=== PATIENT | male | born 1995 | race Caucasian/White ===

== ENCOUNTER 2020-02-16 11:47 | Emergency (ER) | payer SELFPAY ==
[~2020-02-16] VITALS: Ht 182 cm; Wt 79.2 kg
[2020-02-16] MEDS ORDERED: morphine INJ 10 MG/ML 1ML (SYR OR VIAL) ONE (11:50)
[2020-02-16] MEDS ORDERED: morphine INJ 10 MG/ML 1ML (SYR OR VIAL) IVP STA (11:55)
--- NOTE | 2020-02-16 12:00 | ED Trauma-Multisystem ---
General Stated Complaint: FALL- L SIDE RIB PAIN Activation Level: Level 2 Source of Information: Patient Exam Limitations: No Limitations History of Present Illness Date Seen by Provider: Feb 16, 2020 Time Seen by Provider: 11:58 Initial Comments This patient fell down a flight of stairs this morning about 3 to 4 hours prior to presentation here. He has difficulty breathing secondary to left lateral chest pain and left upper abdominal pain. Did not hit his head. Occurred: This Morning Severity: Moderate Method of Injury: Fall Modifying Factors: No Movement Associated Symptoms (Fall): Denies Symptoms Allergies and Home Medications Allergies Coded Allergies: No Known Drug Allergies (Unverified , 02/16/20) Home Medications Docusate Sodium 100 Mg Capsule, 100 MG PO BID Prescribed by: MANISH PERERA on 02/16/20 1234 Oxycodone HCl/Acetaminophen 1 Each Tablet, 1 TAB PO Q4H Prescribed by: MANISH PERERA on 02/16/20 1234 Patient Home Medication List Home Medication List Reviewed: Yes Review of Systems Review of Systems Constitutional: see HPI Eyes: No Symptoms Reported Ears: No Symptoms Reported Nose: No Symptoms Reported Mouth: No Symptoms Reported Throat: No Symptoms to Report Respiratory: see HPI, short of breath Cardiovascular: No Symptoms Reported Genitourinary: no symptoms reported Musculoskeletal: no symptoms reported Past Phcnxqh-Krqhjg-Faydrj Hx Patient Social History Recent Foreign Travel: No Contact w/Someone Who Travel: No Physical Exam Vital Signs Vital Signs - First Documented 02/16/20 11:50 Pulse 85 Resp 36 B/P (MAP) 127/106 (113) Pulse Ox 100 Height, Weight, BMI Height: '" Weight: lbs. oz. kg; BMI Method: General Appearance: Anxious, Moderate Distress (Tachypnea, difficulty taking a deep breath because of pain. Left upper abdomen is tender to palpation.) Head: No Evidence of Injury; No Active Bleeding Eyes: Bilateral Eye Normal Inspection, Bilateral Eye PERRL, Bilateral Eye EOMI Neck: Full Range of Motion, Normal Inspection Respiratory: No Accessory Muscle Use, No Respiratory Distress Gastrointestinal: Normal Bowel Sounds, Soft, Tenderness (Left upper quadrant) Neurologic/Psychiatric: Alert, Oriented x3 Skin: Normal Color, Warm/Dry Beatriz Coma Score Best Eye Response ([place]): (4) Open Spontaneously Best Verbal Response ([place]): (5) Oriented Best Motor Response ([place]): (6) Obeys Commands Beatriz Total: 15 Progress/Results/Core Measures Results/Orders Lab Results Laboratory Tests Test 02/16/20 11:53 Range/Units White Blood Count 12.0 H 4.3-11.0 10^3/uL Red Blood Count 4.54 4.30-5.52 10^6/uL Hemoglobin 14.4 13.3-17.7 g/dL Hematocrit 42 40-54 % Mean Corpuscular Volume 92 80-99 fL Mean Corpuscular Hemoglobin 32 25-34 pg Mean Corpuscular Hemoglobin Concent 34 32-36 g/dL Red Cell Distribution Width 12.9 10.0-14.5 % Platelet Count 248 130-400 10^3/uL Mean Platelet Volume 10.2 9.0-12.2 fL Sodium Level 140 135-145 MMOL/L Potassium Level 4.5 3.6-5.0 MMOL/L Chloride Level 105 98-107 MMOL/L Carbon Dioxide Level 22 21-32 MMOL/L Anion Gap 13 5-14 MMOL/L Blood Urea Nitrogen 14 7-18 MG/DL Creatinine 1.00 0.60-1.30 MG/DL Estimat Glomerular Filtration Rate > 60 BUN/Creatinine Ratio 14 Glucose Level 92 70-105 MG/DL Calcium Level 9.4 8.5-10.1 MG/DL Total Bilirubin 0.3 0.1-1.0 MG/DL Direct Bilirubin 0.2 0.0-0.3 MG/DL Indirect Bilirubin 0.1 MG/DL Aspartate Amino Transf (AST/SGOT) 23 5-34 U/L Alanine Aminotransferase (ALT/SGPT) 16 0-55 U/L Alkaline Phosphatase 68 40-136 U/L Total Protein 8.0 6.4-8.2 GM/DL Albumin 5.0 H 3.2-4.5 GM/DL Serum Alcohol 96 H <10 MG/DL My Orders Orders - MANISH PERERA APRN Cbc No Diff (02/16/20 11:55) Basic Metabolic Panel (02/16/20 11:55) Liver Panel (02/16/20 11:55) Alcohol (02/16/20 11:55) Ua Culture If Indicated (02/16/20 11:55) Type And Screen (02/16/20 11:55) Chest 1 View, Ap/Pa Only (02/16/20 11:55) End Tidal Co2 (02/16/20 11:55) Monitor-Rhythm Ecg Trace Only (02/16/20 11:55) Ed Iv/Invasive Line Start (02/16/20 11:55) Morphine Injection (Morphine Injection (02/16/20 11:55) Ct Head/Cervical Spine Wo (02/16/20 11:55) Ct Chest/Abdomen/Pelvis W (02/16/20 11:55) Drug Screen Stat (Urine) (02/16/20 12:04) Ketorolac Injection (Toradol Injection) (02/16/20 12:30) Oxycodone/Apap 5/325mg Tablet (Percocet (02/16/20 12:30) Ns Iv 1000 Ml (Sodium Chloride 0.9%) (02/16/20 13:00) Medications Given in ED Current Medications Medications Dose Ordered Sig/Brady Route Start Time Stop Time Status Last Admin Dose Admin Iohexol 100 ml ONCE ONCE IV 02/16/20 12:15 02/16/20 12:32 DC 02/16/20 12:18 100 ML Ketorolac Tromethamine 15 mg ONCE ONCE IVP 02/16/20 12:30 02/16/20 12:31 DC 02/16/20 12:53 15 MG Oxycodone/ Acetaminophen 1 tab ONCE ONCE PO 02/16/20 12:30 02/16/20 12:31 DC 02/16/20 12:54 1 TAB Sodium Chloride 100 ml ONCE ONCE IV 02/16/20 12:15 02/16/20 12:32 DC 02/16/20 12:18 80 ML Vital Signs/I&O 02/16/20 11:50 Pulse 85 Resp 36 B/P (MAP) 127/106 (113) Pulse Ox 100 Departure Impression Primary Impression: Rib fracture Qualified Codes: S22.32XA - Fracture of one rib, left side, initial encounter for closed fracture Disposition: 01 HOME, SELF-CARE Condition: Stable Departure-Patient Inst. Decision time for Depature: 12:32 Referrals: NO,LOCAL PHYSICIAN (PCP/Family) Primary Care Physician Patient Instructions: Rib Fracture (DC) Add. Discharge Instructions: 1. Return to ER for any concerns 2. Take pain medication as directed. Follow-up with your doctor this week for recheck. Return to ER for any fevers chills or worsening shortness of breath. Use the incentive spirometer (the device that helps you see how deep of breath you are taking) so that you do not develop a pneumonia. The pain medication can be very constipating so it would be a good idea to take the stool softener prescribed and increase your water intake. Do not mix this medication with alcohol. Emergency department focuses on treating and ruling out life- threatening diseases. Whenever possible, a diagnosis is given. However, most patients are given an impression based on their history, physical exam, and workup during your brief time in the ER. Information about probable diagnosis and other educational material has been provided. Please take the time to read and understand this information. It is very important that you follow up with a physician as discussed during the visit today. Failure to adhere to your follow-up instructions may lead to severe disability, injury, or so please make sure to keep your appointments or obtain one as requested. Scripts Docusate Sodium (Colace) 100 Mg Capsule 100 MG PO BID, #60 CAP Prov: MANISH PERERA APRN 02/16/20 Oxycodone HCl/Acetaminophen (Percocet 5-325 mg Tablet) 1 Each Tablet 1 TAB PO Q4H for PAIN-MODERATE MDD 6 TABS for 7 Days, #30 TAB Prov: MANISH PERERA APRN 02/16/20 MANISH PERERA APRN Feb 16, 2020 12:00
[2020-02-16 12:02] LABS: HEMOGLOBIN 14.4 g/dL (13.3-17.7); MEAN PLATELET VOLUME 10.2 fL (9.0-12.2)
[2020-02-16] MEDS ORDERED: NS 100 ML (IVPB) BAG IV ONE (12:15)
[2020-02-16] MEDS ORDERED: HOLD METFORMIN - RECEIVED CONTRAST 20 ML VIAL IV SCH (12:15)
[2020-02-16] MEDS ORDERED: IOHEXOL 350 MG/ML 100 ML (OMNIPAQUE 350) VIAL IV ONE (12:15)
[2020-02-16 12:19] LABS: CHLORIDE 105 MMOL/L (98-107); POTASSIUM 4.5 MMOL/L (3.6-5.0); SODIUM 140 MMOL/L (135-145)
[2020-02-16 12:20] LABS: CALCIUM 9.4 MG/DL (8.5-10.1)
[2020-02-16 12:22] LABS: GLUCOSE 92 MG/DL (70-105)
[2020-02-16 12:23] LABS: BILIRUBIN,TOTAL 0.3 MG/DL (0.1-1.0); CARBON DIOXIDE 22 MMOL/L (21-32)
[2020-02-16 12:25] LABS: ALKALINE PHOSPHATASE 68 U/L (40-136); GFR ESTIMATED > 60
[2020-02-16 12:26] LABS: BUN/CREATININE RATIO 14
[2020-02-16 12:27] LABS: BILIRUBIN,DIRECT 0.2 MG/DL (0.0-0.3); BILIRUBIN,INDIRECT 0.1 MG/DL
[2020-02-16 12:28] LABS: ALANINE AMINOTRANSFERASE 16 U/L (0-55)
[2020-02-16] MEDS ORDERED: oxyCODONE/APAP 5/325MG (PERCOCET 5) TABLET PO ONE (12:30)
[2020-02-16] MEDS ORDERED: KETOROLAC 30 MG/ML VIAL IVP ONE (12:30)
[2020-02-16] MEDS ORDERED: DOCU-143 PO (12:34)
[2020-02-16] MEDS ORDERED: OXYC1TAB87 PO (12:34)
--- NOTE | 2020-02-16 12:55 | Diagnostic Imaging Report ---
PROCEDURE: CT chest, abdomen, and pelvis with contrast. TECHNIQUE: Multiple contiguous axial images were obtained through the chest, abdomen, and pelvis after the administration of intravenous contrast. Auto Exposure Controls were utilized during the CT exam to meet ALARA standards for radiation dose reduction. INDICATION: Fell down the stairs. Left-sided chest and abdomen pain CT CHEST: The lungs are clear. There is no effusion or pneumothorax. There is no mediastinal mass or hemorrhage. There is no aortic dissection. No bony fracture is seen. There is a defect in the cartilage at the costochondral junction of the left 4th rib which is nondisplaced. Another defect is seen in the costochondral cartilage of the left 5th rib which is displaced. CT abdomen and pelvis: Liver, gallbladder and bile ducts are normal. The spleen, pancreas and adrenals are normal. Kidneys, ureters and bladder are normal. No acute bowel abnormality is seen. No acute bony abnormality is seen. IMPRESSION: CT of the chest shows cartilage injury just distal to the costochondral junction of the left 4th and 5th ribs with some displacement of the cartilage defect at the level of the 5th rib. No other acute abnormality of the chest is seen. No acute abnormality in the abdomen or pelvis is seen. Dictated by: Dictated on workstation # [id number]
[2020-02-16] MEDS ORDERED: NS IV 1000 ML 1,000 ML IV SCH (13:00)
--- NOTE | 2020-02-16 13:09 | Diagnostic Imaging Report ---
EXAMINATION: Portable erect AP chest at 12:34 a.m. INDICATION: Fell, chest pain. There are no prior exams available for comparison. The heart size is within normal limits. The lungs are clear. There is no sign of a contusion or pneumothorax. There is no evidence for pneumonia or pleural effusion either. The mediastinum is not widened. The osseous structures show no sign of an acute abnormality. There is deformity of the midshaft of the left clavicle due to prior trauma however. IMPRESSION: 1. There is no acute cardiopulmonary abnormality identified. 2. Reportedly, CT of the chest, abdomen and pelvis is pending for further study. Dictated by: Dictated on workstation # [id number]
--- NOTE | 2020-02-16 13:10 | Diagnostic Imaging Report ---
PROCEDURE: CT head and CT cervical spine without contrast. TECHNIQUE: Multiple contiguous axial images were obtained through the brain and cervical spine without the use of intravenous contrast. Sagittal and coronal reformations through the cervical spine were then performed. Auto Exposure Controls were utilized during the CT exam to meet ALARA standards for radiation dose reduction. INDICATION: Fell head and neck pain There are no prior studies available for comparison. CT head There is no mass, shift of the midline or hemorrhage to suggest an acute intracranial abnormality. The normal tentorial blush is noted. The ventricles are not abnormally dilated. The bone windows show no sign of a fracture or of a destructive lesion. The orbits are symmetrical and within normal limits. The sinuses are generally clear. IMPRESSION: 1. There is no evidence for an acute intracranial abnormality . 2. If clinical concern regarding an underlying abnormality persists, then MRI would be recommended for further study. CT cervical spine: Reconstructed parasagittal images show the vertebral body heights and alignment to be generally within normal limits. The intervertebral spaces are well-maintained. There is no high-grade central stenosis noted. The bone windows show no evidence for a fracture or for a destructive lesion. There is no sign of retropharyngeal edema. The thyroid gland is not well-visualized. The lung apices are clear. IMPRESSION: There is no evidence for an acute bony abnormality of the cervical spine. Dictated by: Dictated on workstation # [id number]
[2020-02-16 14:15] VITALS: BP 124/89
== END 2020-02-16 14:15 | disposition home or self-care (01) ==
LOC: ER 11:48
DX: S22.42XA Multiple fractures of ribs, left side, initial encounter for closed fracture (principal); R40.2410 Glasgow coma scale score 13-15, unspecified time; W10.8XXA Fall (on) (from) other stairs and steps, initial encounter
CPT/HCPCS: 70450; 71045; 71260; 72125; 74177; 80048; 80076; 85027; 94664; 99283; G0480; 36415; 80320